=== PATIENT | female | born 1975 | race Caucasian/White ===

== ENCOUNTER 2017-04-01 12:27 | Outpatient (CLI) | payer BC ==
--- NOTE | 2017-04-01 15:15 | MRI Report ---
EXAM: MRI CERVICAL SPINE WITHOUT CONTRAST EXAM DATE: 04/01/2017 01:07 PM. CLINICAL HISTORY: Right cervical radiculopathy. COMPARISONS: None. TECHNIQUE: Multiplanar, multisequence T1-weighted and fluid-sensitive sequences of the cervical spine without contrast. Other: None. FINDINGS: Neurologic Structures: The visualized posterior fossa structures are unremarkable. No signal abnormal ity in the visualized spinal cord. Alignment: Normal. No scoliosis or spondylolisthesis. Bone Marrow: No gross fractures or bone lesions. No marrow edema. Interspace Levels/Facets: C1-C2: Unremarkable on sagittal series. C2-C3: Unremarkable. C3-C4: Unremarkable. C4-C5: Mild loss of disk space height is seen. Mild broad-based dorsal and dorsolateral subligamentou s disk protrusion is seen. Effacement and flattening of the thecal sac and spinal cord is noted. Mode rate canal stenosis. C5-C6: Mild broad-based right paracentral disk protrusion and extrusion is seen. Effacement and rosalind ening of the right anterior thecal sac is noted with moderate canal stenosis. Moderate medial foramin al stenosis is seen with mass effect on exiting C6 nerve root. C6-C7: Minimal left dorsal subligamentous disk bulge is seen. No stenosis. C7-T1: Unremarkable. Musculature: Normal. No edema or fatty atrophy. Other: The paravertebral and prevertebral soft tissues are normal. IMPRESSION: 1. C4-C5: Mild degenerative disk change. Broad-based dorsal disk protrusion. Moderate canal stenosis. 2. C5-C6: Mild degenerative disk change. Broad-based right paracentral disk protrusion/herniation is seen. Moderate right canal stenosis. Moderate right medial foraminal stenosis. [facility] Referring Provider Line: [phone] SITE ID: [id number]
== END 2017-04-01 12:28 | disposition home or self-care (01) ==
LOC: DI 12:27
PROVIDERS: ATTEND Family Medicine
DX: M50.221 Other cervical disc displacement at C4-C5 level (principal); M50.321 Other cervical disc degeneration at C4-C5 level
CPT/HCPCS: 72141